=== PATIENT | male | born 1930 | race Caucasian/White ===

== ENCOUNTER → 2016-07-22 | Outpatient (CLI) | payer MEDICARE, OTHER ==
[~2016-07-22] MED LIST: AMLO10 PO; COLA100C PO; COZA100T PO; FOLI800T PO; FOLI800T12 PO; FURO20TA PO; LOSA100T PO; MAGN250T13 PO; META48.53 PO; METO50TA PO; OCUVTAB PO; TIMO0.5S29 EACH EYE; TIMO0.5S30 EACH EYE; TRIA0.1L TOPICAL; TRIAPOW6 TOP; VITA10002 PO; VITA100021 SL; VITA250C3 CHEW; VITA500T10 PO
[2016-07-22 13:14] LABS: AUTOMATED NEUTROPHIL # 9.7 TH/MM3 (1.8-7.7); BASOPHIL # 0.1 TH/MM3 (0-0.2); EOSINOPHIL # 0.2 TH/MM3 (0-0.4); EOSINOPHIL % 1.5 % (0.0-4.0); LYMPH % 8.8 % (9.0-44.0); LYMPHOCYTE # 1.1 TH/MM3 (1.0-4.8); MEAN CELL VOLUME 103.2 FL (80.0-100.0); MEAN CORPUSCULAR HEMOGLOBIN 34.6 PG (27.0-34.0); MEAN CORPUSCULAR HGB CONC 33.5 % (32.0-36.0); MONO % 7.5 % (0.0-8.0); NEUT % 81.2 % (16.0-70.0); PLATELET COUNT 306 TH/MM3 (150-450); RED BLOOD COUNT 3.39 MIL/MM3 (4.50-5.90); RED CELL DISTRIBUTION WIDTH 18.5 % (11.6-17.2); WHITE BLOOD COUNT 11.9 TH/MM3 (4.0-11.0)
[2016-07-22 13:18] LABS: HEMO FLAGS AUTO DIFF
[2016-07-22 13:52] LABS: BANDS 17 % (0-6); CORRECTED NUCLEATED RBC 1 /100 WBC (0-0); EOSINOPHILS 1 % (0-4); MYELOCYTES 2 % (0-0); NEUTROPHIL # MANUAL DIFF 10.2 TH/MM3 (1.8-7.7); POLYS (SEG NEUTROPHILS) 67 % (16-70); WBC DIFF SAMPLE 100
[2016-07-22 13:53] LABS: ACANTHOCYTES 1+ (NORMAL); OVALOCYTES 1+ (NORMAL); PLATELET ESTIMATE SMEAR NORMAL (NORMAL); PLATELET MORPHOLOGY NORMAL (NORMAL); SCAN/DIFF FINAL DIFF MANUAL
[2016-07-22 15:23] LABS: ALT (GPT) 26 U/L (12-78); ANION GAP 7 MEQ/L (5-15); AST (GOT) 22 U/L (15-37); BLOOD UREA NITROGEN 15 MG/DL (7-18); CHLORIDE 105 MEQ/L (98-107); GLOMERULAR FILTRATION RATE 59 ML/MIN (>89); GLUCOSE,FASTING 152 MG/DL (74-99); POTASSIUM 4.4 MEQ/L (3.5-5.1); SODIUM (NA) 140 MEQ/L (136-145)
[2016-07-22 15:33] LABS: ALKALINE PHOSPHATASE 94 U/L (45-117); HDL CHOLESTEROL 50.2 MG/DL (40.0-60.0); LDL CHOLESTEROL 94 MG/DL (0-99); TOTAL BILIRUBIN ADULT 0.4 MG/DL (0.2-1.0)
[2016-07-22 17:39] LABS: HEMOGLOBIN A1a 1.4 %; HEMOGLOBIN A1b 0.9 %; HEMOGLOBIN Ao 81.5 %; HEMOGLOBIN F 1.1 %; HEMOGLOBIN LA1C 2.7 %; HEMOGLOBIN P3 4.6 %
== END ==
LOC: PLAB 09:28
PROVIDERS: ATTEND Family Medicine
DX: Z00.00 Encounter for general adult medical examination without abnormal findings (principal); I48.91 Unspecified atrial fibrillation; I25.10 Atherosclerotic heart disease of native coronary artery without angina pectoris; E11.9 Type 2 diabetes mellitus without complications; Z87.891 Personal history of nicotine dependence; Z86.73 Personal history of transient ischemic attack (TIA), and cerebral infarction without residual deficits; I10 Essential (primary) hypertension; R09.89 Other specified symptoms and signs involving the circulatory and respiratory systems; R60.0 Localized edema; R06.02 Shortness of breath; R01.1 Cardiac murmur, unspecified
CPT/HCPCS: 36415; 80053; 80061; 83036; 84443; 85007; 85027

== ENCOUNTER → 2016-08-12 | Outpatient (CLI) | payer MEDICARE, OTHER ==
[2016-08-12 13:13] LABS: BASOPHIL # 0.1 TH/MM3 (0-0.2); BASOPHIL % 1.3 % (0.0-2.0); EOSINOPHIL # 0.4 TH/MM3 (0-0.4); EOSINOPHIL % 3.6 % (0.0-4.0); HEMATOCRIT 37.7 % (39.0-51.0); LYMPH % 16.9 % (9.0-44.0); LYMPHOCYTE # 1.7 TH/MM3 (1.0-4.8); MEAN CELL VOLUME 102.9 FL (80.0-100.0); MEAN CORPUSCULAR HEMOGLOBIN 35.8 PG (27.0-34.0); MEAN CORPUSCULAR HGB CONC 34.7 % (32.0-36.0); MONO % 6.8 % (0.0-8.0); NEUT % 71.4 % (16.0-70.0); PLATELET COUNT 197 TH/MM3 (150-450); RED BLOOD COUNT 3.66 MIL/MM3 (4.50-5.90); RED CELL DISTRIBUTION WIDTH 19.1 % (11.6-17.2); WHITE BLOOD COUNT 9.8 TH/MM3 (4.0-11.0)
[2016-08-12 13:14] LABS: HEMO FLAGS AUTO DIFF
[2016-08-12 14:05] LABS: BANDS 1 % (0-6); BASOPHILS 1 % (0-2); CORRECTED NUCLEATED RBC 2 /100 WBC (0-0); EOSINOPHILS 3 % (0-4); MYELOCYTES 1 % (0-0); NEUTROPHIL # MANUAL DIFF 7.1 TH/MM3 (1.8-7.7); PLATELET ESTIMATE SMEAR NORMAL (NORMAL); PLATELET MORPHOLOGY NORMAL (NORMAL); POLYS (SEG NEUTROPHILS) 70 % (16-70); SCAN/DIFF FINAL DIFF MANUAL; WBC DIFF SAMPLE 100
[2016-08-12 14:07] LABS: KERATOCYTES OCC (NORMAL); OVALOCYTES 1+ (NORMAL)
== END ==
LOC: PLAB 09:53
PROVIDERS: ATTEND Family Medicine
DX: R06.02 Shortness of breath (principal)
CPT/HCPCS: 36415; 85007; 85027

== ENCOUNTER → 2016-10-12 | Outpatient (CLI) | payer MEDICARE, OTHER ==
[2016-10-12 10:54] LABS: AUTOMATED NEUTROPHIL # 8.7 TH/MM3 (1.8-7.7); BASOPHIL % 0.4 % (0.0-2.0); EOSINOPHIL # 0.1 TH/MM3 (0-0.4); EOSINOPHIL % 1.2 % (0.0-4.0); HEMATOCRIT 39.7 % (39.0-51.0); LYMPH % 12.3 % (9.0-44.0); LYMPHOCYTE # 1.3 TH/MM3 (1.0-4.8); MEAN CELL VOLUME 103.1 FL (80.0-100.0); MEAN CORPUSCULAR HEMOGLOBIN 35.1 PG (27.0-34.0); MONO % 5.1 % (0.0-8.0); PLATELET COUNT 260 TH/MM3 (150-450); RED BLOOD COUNT 3.85 MIL/MM3 (4.50-5.90); RED CELL DISTRIBUTION WIDTH 19.4 % (11.6-17.2); WHITE BLOOD COUNT 10.8 TH/MM3 (4.0-11.0)
[2016-10-12 11:03] LABS: HEMO FLAGS AUTO DIFF
[2016-10-12 11:24] LABS: ALKALINE PHOSPHATASE 79 U/L (45-117); ALT (GPT) 23 U/L (12-78); ANION GAP 10 MEQ/L (5-15); AST (GOT) 22 U/L (15-37); BICARBONATE 25.7 MEQ/L (21.0-32.0); BLOOD UREA NITROGEN 22 MG/DL (7-18); CHLORIDE 105 MEQ/L (98-107); GLOMERULAR FILTRATION RATE 64 ML/MIN (>89); GLUCOSE,FASTING 159 MG/DL (74-99); HDL CHOLESTEROL 58.1 MG/DL (40.0-60.0); LDL CHOLESTEROL 93 MG/DL (0-99); POTASSIUM 4.1 MEQ/L (3.5-5.1); SODIUM (NA) 141 MEQ/L (136-145); TOTAL BILIRUBIN ADULT 0.6 MG/DL (0.2-1.0)
[2016-10-12 11:51] LABS: BANDS 4 % (0-6); MYELOCYTES 3 % (0-0); NEUTROPHIL # MANUAL DIFF 9.1 TH/MM3 (1.8-7.7); POLYS (SEG NEUTROPHILS) 77 % (16-70); WBC DIFF SAMPLE 100
[2016-10-12 11:54] LABS: OVALOCYTES 1+ (NORMAL); PLATELET ESTIMATE SMEAR NORMAL (NORMAL); PLATELET MORPHOLOGY NORMAL (NORMAL); SCAN/DIFF FINAL DIFF MANUAL
== END ==
LOC: PLAB 08:18
PROVIDERS: ATTEND Family Medicine
DX: I10 Essential (primary) hypertension (principal); E78.5 Hyperlipidemia, unspecified
CPT/HCPCS: 36415; 80053; 80061; 85007; 85027

== ENCOUNTER → 2016-12-03 | Outpatient (CLI) | payer MEDICARE, OTHER ==
[2016-12-03 13:03] LABS: AUTOMATED NEUTROPHIL # 7.5 TH/MM3 (1.8-7.7); BASOPHIL # 0.1 TH/MM3 (0-0.2); BASOPHIL % 1.2 % (0.0-2.0); EOSINOPHIL # 0.3 TH/MM3 (0-0.4); EOSINOPHIL % 2.6 % (0.0-4.0); HEMATOCRIT 36.6 % (39.0-51.0); LYMPH % 13.6 % (9.0-44.0); LYMPHOCYTE # 1.4 TH/MM3 (1.0-4.8); MEAN CELL VOLUME 101.8 FL (80.0-100.0); MEAN CORPUSCULAR HEMOGLOBIN 34.9 PG (27.0-34.0); MEAN CORPUSCULAR HGB CONC 34.3 % (32.0-36.0); MONO % 7.5 % (0.0-8.0); NEUT % 75.1 % (16.0-70.0); PLATELET COUNT 211 TH/MM3 (150-450); RED CELL DISTRIBUTION WIDTH 20.2 % (11.6-17.2); WHITE BLOOD COUNT 9.9 TH/MM3 (4.0-11.0)
[2016-12-03 13:24] LABS: HEMO FLAGS AUTO DIFF
[2016-12-03 13:31] LABS: ANION GAP 8 MEQ/L (5-15); BICARBONATE 27.5 MEQ/L (21.0-32.0); BLOOD UREA NITROGEN 16 MG/DL (7-18); CHLORIDE 105 MEQ/L (98-107); GLOMERULAR FILTRATION RATE 69 ML/MIN (>89); GLUCOSE,FASTING 144 MG/DL (74-99); POTASSIUM 4.2 MEQ/L (3.5-5.1); SODIUM (NA) 140 MEQ/L (136-145)
[2016-12-03 14:42] LABS: HEMOGLOBIN A1a 1.4 %; HEMOGLOBIN A1b 0.8 %; HEMOGLOBIN Ao 82.2 %; HEMOGLOBIN F 1.3 %; HEMOGLOBIN LA1C 2.5 %; HEMOGLOBIN P3 5.7 %
[2016-12-03 14:44] LABS: BANDS 3 % (0-6); EOSINOPHILS 1 % (0-4)
[2016-12-03 14:45] LABS: MYELOCYTES 2 % (0-0); NEUTROPHIL # MANUAL DIFF 7.9 TH/MM3 (1.8-7.7); OVALOCYTES 1+ (NORMAL); PLATELET ESTIMATE SMEAR NORMAL (NORMAL); PLATELET MORPHOLOGY ENLARGED (NORMAL); POLYS (SEG NEUTROPHILS) 75 % (16-70); WBC DIFF SAMPLE 100
[2016-12-03 14:47] LABS: ACANTHOCYTES OCC (NORMAL); SCAN/DIFF FINAL DIFF MANUAL; TEARDROP RBCS 1+ (NORMAL)
== END ==
LOC: PLAB 08:32
PROVIDERS: ATTEND Family Medicine
DX: I10 Essential (primary) hypertension (principal); E11.9 Type 2 diabetes mellitus without complications; R89.9 Unspecified abnormal finding in specimens from other organs, systems and tissues
CPT/HCPCS: 36415; 80048; 83036; 85007; 85027

== ENCOUNTER 2016-12-17 08:28 | Inpatient (IN) | payer MEDICARE, OTHER ==
[2016-12-17] VITALS (9 sets, daily range): BP systolic 154–184; BP diastolic 70–84; PULSE 70–74; RESP 17–20; TEMP 96.3–99.3; O2SAT 97–98
[~2016-12-17 08:28] MED LIST changes: -FOLI800T PO; -FURO20TA PO; -LOSA100T PO; -METO50TA PO; -TIMO0.5S30 EACH EYE; -TRIA0.1L TOPICAL; -VITA100021 SL; -VITA250C3 CHEW
--- NOTE | 2016-12-17 08:37 | PD ---
HPI Chief Complaint: Neuro Symptoms/ Deficits Time Seen by Provider: 08:31 Travel History International Travel<30 days: No Contact w/Intl Traveler<30days: No (uto) Traveled to known affect area: No History of Present Illness HPI unknown onset time, last saw him normal last night, this am she found him slumped over in bathroom and leaning to right side and had left sided gaze with right sided weakness upper more than lower.... gives h/o previous bleeding stroke in 2011 PFSH Past Medical History Hx Anticoagulant Therapy: No (von willebraun) Atrial Fibrillation: Yes (AV VALVE INSUFFICIENCY) Autoimmune Disease: No Blood Disorders: Yes (Von Willebrand Disease) Heart Rhythm Problems: Yes (A. FIB) Cancer: Yes (SKIN CANCER THAT WAS REMOVED ) Cardiovascular Problems: Yes High Cholesterol: No Chemotherapy: No Chest Pain: No Congestive Heart Failure: Yes Cerebrovascular Accident: No (neuro) Diabetes: No Diminished Hearing: No Endocrine: No Genitourinary: No Hepatitis: No Hiatal Hernia: No Hypertension: Yes Immune Disorder: No Musculoskeletal: Yes (osteoarthritis) Neurologic: Yes (bleeding on the brain 2013) Psychiatric: No Reproductive: No Respiratory: No Migraines: No Radiation Therapy: No Seizures: No Thyroid Disease: No Past Surgical History Abdominal Surgery: Yes (LOWER R ABD HERNIA REPAIR 1950) AICD: No Body Medical Devices: Pace maker Cardiac Surgery: No Ear Surgery: No Endocrine Surgery: No Eye Surgery: Yes (SHERRI CATARACT SURGERY) Genitourinary Surgery: No Gynecologic Surgery: No Joint Replacement: No Neurologic Surgery: Yes (SHERRI CARPAL TUNNEL SURGERY 2011) Oral Surgery: Yes (TEETH EXTRACTION, DENTAL IMPLANTS, BENIGN NODULE ON VOCAL CHORD REMOVED) Pacemaker: Yes Thoracic Surgery: No Tonsillectomy: Yes Other Surgery: Yes (SKIN CA REMOVAL AND VOCAL CORD NODULE REMOVED) Social History Alcohol Use: Yes (3 DRINKS DAILY) Tobacco Use: No Substance Use: No Allergies-Medications (Allergen,Severity, Reaction): Coded Allergies: HMG-CoA Reductase Inhibitors (Verified Allergy, Severe, 12/17/16) Penicillin (Verified Allergy, Severe, UNKNOWN, 12/17/16) Reported Meds & Prescriptions Reported Meds & Active Scripts Active Reported Triamcinolone Topical (Triamcinolone Acetonide) 0.1% Lotn 1 Applic TOPICAL TID Vitamin B-12 (Cyanocobalamin) 1,000 Mcg Subl 1,000 Mcg SL DAILY Metamucil Original Texture (Psyllium Hydrophilic Mucilloid) 48.57 % Pow 1 Scoop PO TID PRN 1 rounded TEASPOON in 8 oz of liquid at the first sign of irregularity. Timolol Opth Drops 0.5 % Soln 1 Drop EACH EYE BID Folic Acid 800 Mcg Tab 800 Mcg PO DAILY Ocuvite (Multiple Vitamins W/ Minerals) 1 Tab 1 Tab PO DAILY Vitamin C (Ascorbic Acid) 250 Mg Chew 500 Mg CHEW DAILY Metoprolol Tartrate 50 Mg Tab 50 Mg PO BID Furosemide 20 Mg Tab 20 Mg PO DAILY Losartan (Losartan Potassium) 100 Mg Tab 100 Mg PO DAILY Review of Systems ROS Limitations: Altered Mental Status, Speech Impaired Except as stated in HPI: all other systems reviewed are Neg Neurologic: Positive: Focal Abnormalities Physical Exam Narrative GENERAL: SKIN: Warm and dry. HEAD: Atraumatic. Normocephalic. EYES: Pupils equal and round. No scleral icterus. No injection or drainage. ENT: No nasal bleeding or discharge. Mucous membranes pink and moist. NECK: Trachea midline. No JVD. CARDIOVASCULAR: Regular rate and rhythm. RESPIRATORY: No accessory muscle use. Clear to auscultation. Breath sounds equal bilaterally. GASTROINTESTINAL: Abdomen soft, non-tender, nondistended. Hepatic and splenic margins not palpable. MUSCULOSKELETAL: Extremities without clubbing, cyanosis, or edema. No obvious deformities. NEUROLOGICAL: Awake, left sided gaze, right sided paresis ue(0/5)>le(2/5 strenghth), guarding airway, tolerating oral secretions, nihs total 19 PSYCHIATRIC: unable to test Data Data Last Documented VS Vital Signs Date Time Temp Pulse Resp B/P Pulse Ox O2 Delivery O2 Flow Rate FiO2 12/17/16 10:17 74 20 184/70 97 Room Air 12/17/16 08:52 98.0 Orders Electrocardiogram (12/17/16 08:31) Prothrombin Time / Inr (Pt) (12/17/16 08:31) Act Partial Throm Time (Ptt) (12/17/16 08:31) Complete Blood Count With Diff (12/17/16 08:31) Comprehensive Metabolic Panel (12/17/16 08:31) Troponin I (12/17/16 08:31) Ct Brain W/O Iv Contrast(Rout) (12/17/16 08:31) Ecg Monitoring (12/17/16 08:31) Iv Access Insert/Monitor (12/17/16 08:31) Oximetry (12/17/16 08:31) Blood Glucose (12/17/16 08:31) Sodium Chloride 0.9% Flush (Ns Flush) (12/17/16 08:45) Chest, Single Ap (12/17/16 08:31) Urinary Catheter Insert/Apply (12/17/16 09:54) Urinalysis - C+S If Indicated (12/17/16 09:54) Admit Order (Ed Use Only) (12/17/16 11:32) Labs Laboratory Tests Test 12/17/16 12/17/16 08:35 10:05 White Blood Count 16.7 TH/MM3 Red Blood Count 3.69 MIL/MM3 Hemoglobin 12.6 GM/DL Hematocrit 38.5 % Mean Corpuscular Volume 104.3 FL Mean Corpuscular Hemoglobin 34.1 PG Mean Corpuscular Hemoglobin 32.7 % Concent Red Cell Distribution Width 19.5 % Platelet Count 189 TH/MM3 Mean Platelet Volume 8.7 FL Neutrophils (%) (Auto) 88.5 % Lymphocytes (%) (Auto) 4.9 % Monocytes (%) (Auto) 5.1 % Eosinophils (%) (Auto) 0.8 % Basophils (%) (Auto) 0.7 % Neutrophils # (Auto) 14.8 TH/MM3 Lymphocytes # (Auto) 0.8 TH/MM3 Monocytes # (Auto) 0.9 TH/MM3 Eosinophils # (Auto) 0.1 TH/MM3 Basophils # (Auto) 0.1 TH/MM3 CBC Comment AUTO DIFF Differential Total Cells 100 Counted Neutrophils % (Manual) 85 % Band Neutrophils % 6 % Lymphocytes % 3 % Monocytes % 4 % Basophils % 1 % Neutrophils # (Manual) 15.4 TH/MM3 Metamyelocytes 1 % Nucleated Red Blood Cells 1 /100 WBC Differential Comment FINAL DIFF MANUAL Platelet Estimate NORMAL Platelet Morphology Comment NORMAL Ovalocytes 1+ Prothrombin Time 11.0 SEC Prothromb Time International 1.0 RATIO Ratio Activated Partial 25.4 SEC Thromboplast Time Sodium Level 138 MEQ/L Potassium Level 4.0 MEQ/L Chloride Level 103 MEQ/L Carbon Dioxide Level 25.8 MEQ/L Anion Gap 9 MEQ/L Blood Urea Nitrogen 17 MG/DL Creatinine 1.22 MG/DL Estimat Glomerular Filtration 56 ML/MIN Rate Random Glucose 192 MG/DL Calcium Level 8.8 MG/DL Total Bilirubin 0.9 MG/DL Aspartate Amino Transf 26 U/L (AST/SGOT) Alanine Aminotransferase 26 U/L (ALT/SGPT) Alkaline Phosphatase 91 U/L Troponin I LESS THAN 0.02 NG/ML Total Protein 6.8 GM/DL Albumin 3.6 GM/DL Urine Color YELLOW Urine Turbidity CLEAR Urine pH 6.5 Urine Specific [place] 1.018 Urine Protein TRACE mg/dL Urine Glucose (UA) NEG mg/dL Urine Ketones NEG mg/dL Urine Occult Blood NEG Urine Nitrite NEG Urine Bilirubin NEG Urine Urobilinogen LESS THAN 2.0 MG/DL Urine Leukocyte Esterase TRACE Urine RBC 1 /hpf Urine WBC 3 /hpf Urine Bacteria RARE /hpf Urine Hyaline Casts 1 /lpf Microscopic Urinalysis Comment CULT NOT INDICATED MDM Medical Decision Making Medical Screen Exam Complete: Yes Emergency Medical Condition: Yes Medical Record Reviewed: Yes Interpretation(s) paced rhtyhm at 70, no concordance Differential Diagnosis hemorrhagic vs ischemic stroke, Narrative Course ISCHEMIC CVA OUTSIDE OF TPA WINDOW. NEURO DR CEE AGREES AND WILL GIVE RECC DUE TO HYPERCOAGULABLE NATURE OF VWF DZ Diagnosis Primary Impression: CVA (cerebral vascular accident) Qualified Code: I63.9 - Cerebrovascular accident (CVA), unspecified mechanism Admitting Information Admitting Physician Requests: Admit Jermain Triana MD Dec 17, 2016 08:37
[2016-12-17] MEDS ORDERED: SODIUM CHLORIDE 0.9% FLUSH 10 ML FLUSH IVF PRN (08:45)
[2016-12-17 09:04] LABS: AUTOMATED NEUTROPHIL # 14.8 TH/MM3 (1.8-7.7); BASOPHIL # 0.1 TH/MM3 (0-0.2); BASOPHIL % 0.7 % (0.0-2.0); EOSINOPHIL # 0.1 TH/MM3 (0-0.4); EOSINOPHIL % 0.8 % (0.0-4.0); HEMATOCRIT 38.5 % (39.0-51.0); LYMPH % 4.9 % (9.0-44.0); LYMPHOCYTE # 0.8 TH/MM3 (1.0-4.8); MEAN CELL VOLUME 104.3 FL (80.0-100.0); MEAN CORPUSCULAR HEMOGLOBIN 34.1 PG (27.0-34.0); MEAN CORPUSCULAR HGB CONC 32.7 % (32.0-36.0); MONO % 5.1 % (0.0-8.0); NEUT % 88.5 % (16.0-70.0); PLATELET COUNT 189 TH/MM3 (150-450); RED BLOOD COUNT 3.69 MIL/MM3 (4.50-5.90); RED CELL DISTRIBUTION WIDTH 19.5 % (11.6-17.2); WHITE BLOOD COUNT 16.7 TH/MM3 (4.0-11.0)
[2016-12-17 09:07] LABS: HEMO FLAGS AUTO DIFF
--- NOTE | 2016-12-17 09:12 | RADRPT ---
EXAM DATE/TIME: 12/17/2016 08:38 [facility] COMPARISON: CT BRAIN W/O CONTRAST, April 26, 2012, 11:14. INDICATIONS : Left side gaze, Right side weakness. RADIATION DOSE: 47.28 CTDIvol (mGy) MEDICAL HISTORY : Non-responsive. SURGICAL HISTORY : Non-responsive. ENCOUNTER: Initial ACUITY: 1 day PAIN SCALE: Non-responsive LOCATION: TECHNIQUE: Multiple contiguous axial images were obtained of the head. Using automated exposure control and adj ustment of the mA and/or kV according to patient size, radiation dose was kept as low as reasonably a chievable to obtain optimal diagnostic quality images. 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 There is associated expected enlargement of the occipital horn of the right lateral ventricle. The ventricles, sulci, and basal cisterns are pro minent characteristic a central and cortical atrophy. There is good reilly-white matter differentiatio n in the remainder of the supratentorial brain. No evidence of acute blood products or extra-axial f luid. POSTERIOR FOSSA: The cerebellum and brainstem are intact. The 4th ventricle is midline. The cerebellopontine angle i s unremarkable. EXTRACRANIAL: The visualized portion of the orbits is intact. SKULL: The calvaria is intact. No evidence of skull fracture. CONCLUSION: No acute findings. Moderate central and cortical atrophy. Encephalomalacia right posterior temporal parietal region. Howie Freire MD on December 17, 2016 at 9:07 Board Certified Radiologist. This report was verified electronically.
[2016-12-17 09:17] LABS: ANION GAP 9 MEQ/L (5-15); AST (GOT) 26 U/L (15-37); BICARBONATE 25.8 MEQ/L (21.0-32.0); BLOOD UREA NITROGEN 17 MG/DL (7-18); CHLORIDE 103 MEQ/L (98-107); GLOMERULAR FILTRATION RATE 56 ML/MIN (>89); SODIUM (NA) 138 MEQ/L (136-145)
[2016-12-17 09:18] LABS: ALT (GPT) 26 U/L (12-78)
[2016-12-17] MEDS ORDERED: FOLI800T PO (09:18)
[2016-12-17] MEDS ORDERED: VITA250C3 CHEW (09:18)
[2016-12-17] MEDS ORDERED: VITA100021 SL (09:18)
[2016-12-17] MEDS ORDERED: FURO20TA PO (09:18)
[2016-12-17] MEDS ORDERED: TIMO0.5S30 EACH EYE (09:18)
[2016-12-17] MEDS ORDERED: META48.53 PO (09:18)
[2016-12-17] MEDS ORDERED: OCUVTAB PO (09:18)
[2016-12-17] MEDS ORDERED: LOSA100T PO (09:18)
[2016-12-17] MEDS ORDERED: METO50TA PO (09:18)
[2016-12-17] MEDS ORDERED: TRIA0.1L TOPICAL (09:18)
[2016-12-17 09:22] LABS: ALKALINE PHOSPHATASE 91 U/L (45-117); TOTAL BILIRUBIN ADULT 0.9 MG/DL (0.2-1.0)
[2016-12-17 09:27] LABS: APTT (PATIENT) 25.4 SEC (24.3-30.1)
--- NOTE | 2016-12-17 09:28 | RADRPT ---
EXAM DATE/TIME: 12/17/2016 08:44 [facility] COMPARISON: CHEST SINGLE AP, October 02, 2015, 1:17. INDICATIONS : Shortness of breath. MEDICAL HISTORY : None. SURGICAL HISTORY : region of the aortic valve. The cardiomediastinal contours are unremarkable. Osseous structures are intact. CONCLUSION: No acute disease. Howie Antonio Jr., MD on December 17, 2016 at 9:24 Board Certified Radiologist. This report was verified electronically.
[2016-12-17 10:01] LABS: BANDS 6 % (0-6); BASOPHILS 1 % (0-2); CORRECTED NUCLEATED RBC 1 /100 WBC (0-0); METAMYELOCYTES 1 % (0-1); NEUTROPHIL # MANUAL DIFF 15.4 TH/MM3 (1.8-7.7); POLYS (SEG NEUTROPHILS) 85 % (16-70); WBC DIFF SAMPLE 100
[2016-12-17 10:02] LABS: OVALOCYTES 1+ (NORMAL); PLATELET ESTIMATE SMEAR NORMAL (NORMAL); PLATELET MORPHOLOGY NORMAL (NORMAL); SCAN/DIFF FINAL DIFF MANUAL
[2016-12-17 10:34] LABS: BACTERIA, URINE RARE /hpf; BLOOD, URINE NEG (NEG); COMMENT (UR) CULT NOT INDICATED; CULTURE IF INDICATED CULT NOT INDICATED; GLUCOSE,URINE NEG (NEG); HYALINE CAST, URINE 1 /lpf (RARE); KETONE, URINE NEG (NEG); NITRITE,URINE NEG (NEG); PH, URINE 6.5 (5.0-8.5); URINE COLOR YELLOW (YELLW/STRAW)
--- NOTE | 2016-12-17 11:56 | MB ---
cc: CRISTIANE CEE M.D. DATE OF CONSULTATION: 12/17/2016 HISTORY OF PRESENT ILLNESS The patient is an 86-year-old seen in the emergency room. I spoke to the ED physician a few minutes before I came down and met him in the emergency room. The is at bedside and she also provides a history. The patient has a past history of atrial fibrillation and apparently had intracranial bleed in 2012 when he was on Coumadin. Also history of von Willebrand disease and apparently cannot take any blood thinners. He has hypertensive disease and takes amlodipine. He is on vitamins. He follows with a acting instructor, Dr. Zendejas. The patient recovered well from the bleed a few years ago and he was at his baseline yesterday. In the afternoon he apparently had something minor as he may have lost his balance and he had no consequences from this. Later in the evening he seemed to be fine and went to bed around 10:00 p.m. This morning the woke up and noticed that the patient had a neurological deficit. He was brought to the emergency room. He has not changed very much. NEUROLOGICAL EXAMINATION He is awake, restless, mumbling. At times he will follow simple commands. He did close the eyes on request. He is moving the left-sided limbs well. Occasionally he moves the right leg. There is some tone in the right leg. The right arm is flaccid. He is gazing preferentially to the left and he is neglecting when I am on his right side and keeps looking towards the left for the verbal stimulation. He has extensive bruising involving the right arm predominantly but there is bruising on other areas of the body. The pupils were about the same size and reactive. IMAGING A CT brain was negative for an acute neurologic event. ASSESSMENT 1. 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 2. Prior history of atrial fibrillation and intracranial bleed, apparently when he was on Coumadin. 3. von Willebrand disease. PLAN/RECOMMENDATIONS This was a wake-up stroke. Evidently not a candidate for any TPA or any acute anticoagulation. There is extensive bruising, especially in the right upper extremity where he is flaccid and 0/5. He might not even be a candidate for antiplatelet therapy because of the hematologic disorder. He has a pacemaker. Will monitor the neurological course. IV fluids and supportive care. SCDs as I discussed with the emergency room physician. Will work him up also with a carotid ultrasound. Follow-up CT brain in a day or so. He is significantly aphasic and he may have sustained a large stroke. I will follow the neurological course. Diagnosis and prognosis discussed with the patient's . His daughter was also at bedside. Thank you for asking us to assist in his care. Cristiane Cee MD OFC/BT /11:28 AM /11:38 AM
--- NOTE | 2016-12-17 12:37 | HHI.HP ---
[facility] No Primary Care Physician Admission Diagnosis ACUTE ISCHEMIC CVA Diagnoses: Chief Complaint: Syncope Travel History International Travel<30 Days: No Contact w/Intl Traveler <30 Da: No (uto) Traveled to Known Affected Are: No History of Present Illness This is a 86-year-old male past medical history Von Willebrand Disease, aortic stenosis s/p TAVR in 2013 history of hemorrhagic stroke secondary to Coumadin who presented with syncope and strokelike symptoms. History obtained from patient's since patient has aphasia. Per yesterday patient did have an episode where he was not able to get up but that resolved quickly. Before going to bed last night she stated that he was perspiring a little more and stated that he felt funny but she that was okay so they went to bed. This morning at 7:30 AM his found him sitting on the toilet slumped onto the wall. She stated that she called EMS and during that time he was responsive but when he left he was nonresponsive. In the emergency department patient does follow commands but has aphasia. He has no strength on his right side. Review of Systems Cardiovascular: COMPLAINS OF: Syncope Unable to obtain due to stroke. Past Family Social History Past Medical History Von Willebrand disease, history of aortic stenosis, history of intracranial bleed in 2011 due to Coumadin, hypertension Past Surgical History TAVR Pacemaker placement History of back surgery in 2016 Reported Medications Triamcinolone Topical (Triamcinolone Acetonide) 0.1% Lotn 1 Applic TOPICAL TID Vitamin B-12 (Cyanocobalamin) 1,000 Mcg Subl 1,000 Mcg SL DAILY Metamucil Original Texture (Psyllium Hydrophilic Mucilloid) 48.57 % Pow 1 Scoop PO TID PRN 1 rounded TEASPOON in 8 oz of liquid at the first sign of irregularity. Timolol Opth Drops 0.5 % Soln 1 Drop EACH EYE BID Folic Acid 800 Mcg Tab 800 Mcg PO DAILY Ocuvite (Multiple Vitamins W/ Minerals) 1 Tab 1 Tab PO DAILY Vitamin C (Ascorbic Acid) 250 Mg Chew 500 Mg CHEW DAILY Metoprolol Tartrate 50 Mg Tab 50 Mg PO BID Furosemide 20 Mg Tab 20 Mg PO DAILY Losartan (Losartan Potassium) 100 Mg Tab 100 Mg PO DAILY Allergies: Coded Allergies: HMG-CoA Reductase Inhibitors (Verified Allergy, Severe, 12/17/16) Penicillin (Verified Allergy, Severe, UNKNOWN, 12/17/16) Active Ordered Medications Current Medications Sodium Chloride (NS Flush) 2 ml UNSCH PRN IVF FLUSH AFTER USING IV ACCESS; Start 12/17/16 at 08:45; Stop 12/17/16 at 13:13; Status DC Sodium Chloride (NS Flush) 2 ml BID IV FLUSH ; Start 12/17/16 at 21:00 Sodium Chloride (NS Flush) 2 ml UNSCH PRN IV FLUSH FLUSH AFTER USING IV ACCESS ; Start 12/17/16 at 12:45 Insulin Aspart (NovoLOG SUPPLEMENTAL SCALE) 1 ACHS SQ ; Start 12/17/16 at 16:00 Dextrose (D50w (Vial) Inj) 50 ml UNSCH PRN IV PUSH HYPOGLYCEMIA-SEE COMMENTS; Start 12/17/16 at 12:45 Glucagon (Glucagon Inj) 1 mg UNSCH PRN OTHER HYPOGLYCEMIA-SEE COMMENTS; Start 12/17/16 at 12:45 Family History Father and mother had cardiovascular disease. Social History Patient lives with his . Stopped smoking at the age of 41. Drinks a shot of bourbon every night. Physical Exam Vital Signs Vital Signs Date Time Temp Pulse Resp B/P Pulse Ox O2 Delivery O2 Flow Rate FiO2 12/17/16 10:17 74 20 184/70 97 Room Air 12/17/16 08:52 98.0 70 18 154/72 97 Room Air 12/17/16 08:31 70 18 168/77 97 Physical Exam GENERAL: This is a well-nourished, well-developed patient, in no apparent distress. SKIN: Multiple bruises found on extremities. HEAD: Atraumatic. Normocephalic. No temporal or scalp tenderness. EYES: Pupils equal round and reactive. Extraocular motions intact. No scleral icterus. No injection or drainage. Patient tends to favor his left side. ENT: Nose without bleeding, purulent drainage or septal hematoma. Throat without erythema, tonsillar hypertrophy or exudate. Uvula midline. Airway patent. NECK: Trachea midline. No JVD or lymphadenopathy. Supple, nontender, no meningeal signs. CARDIOVASCULAR: Regular rate and rhythm, gallops, or rubs. 2/6 systolic heart murmur RESPIRATORY: Clear to auscultation. Breath sounds equal bilaterally. No wheezes , rales, or rhonchi. GASTROINTESTINAL: Abdomen soft, non-tender, nondistended. No hepato-splenomegaly , or palpable masses. No guarding. MUSCULOSKELETAL: 5 out of 5 upper and lower extremity left-sided strength. Right sided flaccid. NEUROLOGICAL: Patient seemed lethargic. He does follow basic commands. Has aphasia. Laboratory Laboratory Tests Test 12/17/16 12/17/16 08:35 10:05 White Blood Count 16.7 Red Blood Count 3.69 Hemoglobin 12.6 Hematocrit 38.5 Mean Corpuscular Volume 104.3 Mean Corpuscular Hemoglobin 34.1 Mean Corpuscular Hemoglobin 32.7 Concent Red Cell Distribution Width 19.5 Platelet Count 189 Mean Platelet Volume 8.7 Neutrophils (%) (Auto) 88.5 Lymphocytes (%) (Auto) 4.9 Monocytes (%) (Auto) 5.1 Eosinophils (%) (Auto) 0.8 Basophils (%) (Auto) 0.7 Neutrophils # (Auto) 14.8 Lymphocytes # (Auto) 0.8 Monocytes # (Auto) 0.9 Eosinophils # (Auto) 0.1 Basophils # (Auto) 0.1 CBC Comment AUTO DIFF Differential Total Cells 100 Counted Neutrophils % (Manual) 85 Band Neutrophils % 6 Lymphocytes % 3 Monocytes % 4 Basophils % 1 Neutrophils # (Manual) 15.4 Metamyelocytes 1 Nucleated Red Blood Cells 1 Differential Comment FINAL DIFF MANUAL Platelet Estimate NORMAL Platelet Morphology Comment NORMAL Ovalocytes 1+ Prothrombin Time 11.0 Prothromb Time International 1.0 Ratio Activated Partial 25.4 Thromboplast Time Sodium Level 138 Potassium Level 4.0 Chloride Level 103 Carbon Dioxide Level 25.8 Anion Gap 9 Blood Urea Nitrogen 17 Creatinine 1.22 Estimat Glomerular Filtration 56 Rate Random Glucose 192 Calcium Level 8.8 Total Bilirubin 0.9 Aspartate Amino Transf 26 (AST/SGOT) Alanine Aminotransferase 26 (ALT/SGPT) Alkaline Phosphatase 91 Troponin I LESS THAN 0.02 Total Protein 6.8 Albumin 3.6 Urine Color YELLOW Urine Turbidity CLEAR Urine pH 6.5 Urine Specific [place] 1.018 Urine Protein TRACE Urine Glucose (UA) NEG Urine Ketones NEG Urine Occult Blood NEG Urine Nitrite NEG Urine Bilirubin NEG Urine Urobilinogen LESS THAN 2.0 Urine Leukocyte Esterase TRACE Urine RBC 1 Urine WBC 3 Urine Bacteria RARE Urine Hyaline Casts 1 Microscopic Urinalysis Comment CULT NOT INDICATED Result Diagram: 12/17/1683412/17/16834 Imaging Last Impressions Head CT 12/17/16830 Signed Impressions: Service Date/Time: December 08:38 - CONCLUSION: No acute findings. Moderate central and cortical atrophy. Encephalomalacia right posterior temporal parietal region. Howie Freire MD Chest X-Ray 12/17/16830 Signed Impressions: Service Date/Time: December 08:44 - CONCLUSION: No acute disease. Howie Antonio Jr., MD Assessment and Plan Assessment and Plan 85-year-old male past medical history of von Willebrand's disease, history of intracranial hemorrhage secondary to Coumadin, and hypertension who presented with Dysphagia and right-sided weakness -Most likely secondary to CVA. -Difficulty doing a stroke workup since patient does have a pacemaker. Patient does have Von Willebrand's disease with extensive bruising on extremities and history of intracranial hemorrhage per neurologist which makes it contraindicated for any antiplatelet or anticoagulation therapy. -Unable to obtain MRI due to pacemaker will repeat CT scan of the head as directed by neurologist tomorrow. Will also order carotid ultrasound and echo. -Continue with stroke protocol. Consult PT/OT/ST. -Allow permissive hypertension. Will get a lipid panel and hemoglobin A1c. -Poor prognosis. History of hypertension -Will allow permissive hypertension. Von Willebrand's disease, aortic stenosis s/p TAVR -stable DVT prophylaxis -SCDs. Discussed Condition With patient, his and daughter Very poor prognosis. Physician Certification 2 Midnight Certification Type: Admission for Inpatient Services Order for Inpatient Services The services are ordered in accordance with Medicare regulations or non- Medicare payer requirements, as applicable. In the case of services not specified as inpatient-only, they are appropriately provided as inpatient services in accordance with the 2-midnight benchmark. Estimated LOS (days): 5 5 days is the estimated time the patient will need to remain in the hospital, assuming treatment plan goals are met and no additional complications. Post-Hospital Plan: [facility] Regla Garnett MD Dec 17, 2016 12:37
[2016-12-17] MEDS ORDERED: DEXTROSE 50% IN WATER 50 ML VIAL(D50) IV PUSH PRN (12:45)
[2016-12-17] MEDS ORDERED: SODIUM CHLORIDE 0.9% FLUSH 10 ML FLUSH IV FLUSH PRN (12:45)
[2016-12-17] MEDS ORDERED: GLUCAGON 1 MG/ML VIAL OTHER PRN (12:45)
--- NOTE | 2016-12-17 14:50 | EKG ---
Date Performed: 12/17/2016 Time Performed: 08:47:22 PTAGE: 86 years EKG: ELECTRONIC VENTRICULAR PACEMAKER ABNORMAL RHYTHM ECG Compared to PREVIOUS TRACING , ventricular pacing is new. PREVIOUS TRACIN05/09/2014 14.16 DOCTOR: Adam Chapman Interpretating Date/Time 12/17/2016 14:48:28
[2016-12-17] MEDS: INSULIN ASPART SUPPLEMENTAL SCALE SQ SCH ×2 (16:00→21:00)
[2016-12-17 16:16] LABS: HEMOGLOBIN A1a 1.4 %; HEMOGLOBIN A1b 0.8 %; HEMOGLOBIN Ao 82.2 %; HEMOGLOBIN F 1.3 %; HEMOGLOBIN LA1C 2.8 %; HEMOGLOBIN P3 4.2 %
--- NOTE | 2016-12-17 16:42 | ECHRPT ---
Indication: CVA/TIA CONCLUSIONS Normal left ventricular size. Mild concentric left ventricular hypertrophy. The left ventricular sys tolic function is normal with an estimated ejection fraction in the range of 55-60%. No regional wall chacha on abnormalities are present. Doppler parameters are consistent with impaired left ventricular relaxtio n (grade 1 diastolic dysfunction). A pacemaker wire is noted. The left atrial size is ygsx-tk-abibjcxgrk dilated. The right atrial size is gghi-ti-vzttkyjtlw dilated. Mitral annular calcification is present. Moderate mitral valve regurgitation. No mitral valve steno sis. Structurally normal tricuspid valve. There is moderate tricuspid regurgitation. The estimated pulmon everardo arterial pressure is 64 mmHg. There is estimated xlfejnvw-oa-uinpcz pulmonary hypertension present (range 60-70 mmHg). BP: 154 / 72 HR: 72 Rhythm: Other MEASUREMENTS (Male / Female) Normal Values Technical Quality:Fair 2D ECHO LV Diastolic Diameter PLAX 5.3 cm 4.2 - 5.9 / 3.9 - 5.3 cm LV Systolic Diameter PLAX 4.4 cm IVS Diastolic Thickness 1.2 cm 0.6 - 1.0 / 0.6 - 0.9 cm LVPW Diastolic Thickness 1.1 cm 0.6 - 1.0 / 0.6 - 0.9 cm LV Relative Wall Thickness 0.4 LVOT Diameter 2.0 cm M-MODE Aortic Root Diameter MM 2.6 cm LA Systolic Diameter MM 5.6 cm LA Ao Ratio MM 2.2 DOPPLER AV Peak Velocity 95.0 cm/s AV Peak Gradient 3.6 mmHg LVOT Peak Velocity 70.7 cm/s LVOT Peak Gradient 2.0 mmHg AV Area Cont Eq pk 2.3 cm MR Peak Velocity 596.0 cm/s MR Peak Gradient 142.1 mmHg LV E' Lateral Velocity 8.1 cm/s LV E' Septal Velocity 5.2 cm/s TR Peak Velocity 369.0 cm/s TR Peak Gradient 54.0 mmHg PV Peak Velocity 122.0 cm/s PV Peak Gradient 6.0 mmHg FINDINGS Left Ventricle Normal left ventricular size. Mild concentric left ventricular hypertrophy. The left ventricular sys tolic function is normal with an estimated ejection fraction in the range of 55-60%. No regional wall chacha on abnormalities are present. Doppler parameters are consistent with impaired left ventricular relaxtio n (grade 1 diastolic dysfunction). Right Ventricle A pacemaker wire is noted. Left Atrium The left atrial size is yhrw-ta-hwdczmvjfx dilated. Right Atrium The right atrial size is huto-qz-tysfxzbnxe dilated. Atrial Septum Normal atrial septal thickness without atrial level shunting by limited color doppler interrogation. Aorta The aortic root and proximal ascending aorta are normal in size on limited imaging. Mitral Valve Mitral annular calcification is present. Moderate mitral valve regurgitation. Aortic Valve Trileaflet aortic valve. No aortic valve stenosis or regurgitation. Tricuspid Valve Structurally normal tricuspid valve. There is moderate tricuspid regurgitation. The estimated pulmon everardo arterial pressure is 64 mmHg. There is estimated sozoyxnx-qi-macgga pulmonary hypertension present (range 60-70 mmHg). Pulmonary Valve The pulmonary valve is not well visualized. Vessels The inferior vena cava is normal in size. Pericardium No pericardial effusion. Other Findings Possible aortic valve replacement... patient was not very verbal during exam. Randy Porter MD, FACC (Electronically Signed) Final Date:17 December 2016 16:42
--- NOTE | 2016-12-17 19:12 | RADRPT ---
EXAM DATE/TIME: 12/17/2016 17:02 [facility] COMPARISON: No previous studies available for comparison. INDICATIONS : Cerebrovascular accident. MEDICAL HISTORY : Stroke. Congestive heart failure. Hypertension. A-fib. Arthritis. MRSA. SURGICAL HISTORY : Pacemaker. Tonsillectomy. Aortic valve replacement. ENCOUNTER: Initial ACUITY: 1 day PAIN SCORE: 0/10 LOCATION: Bilateral neck PEAK SYSTOLIC VELOCITIES (cm/sec): ICA/CCA RATIO: Right: 2.2 Left: 1.2 ICA: Right: 142 Left: 67 CCA: Right: 64 Left: 55 ECA: Right: 144 Left: 124 VERTEBRAL: Right: 51 antegrade Left: 77 antegrade Elevated flow velocities and ICA/CCA ratios have been found to correlate with increased degrees of vessel stenosis, calculated as percentage of diameter relative to a normal segment of distal ICA/CCA FINDINGS: RIGHT CAROTID: Mild flow velocity acceleration associated with mild eccentric plaquing. LEFT CAROTID: Mild eccentric plaquing. No significant stenosis is visualized. The waveforms are within normal limi ts. VERTEBRAL ARTERIES: Antegrade flow is seen in both vertebral arteries. MISCELLANEOUS: None. CONCLUSION: Mild flow velocity acceleration across the right carotid bifurcation indicating at least moderate oliverio notic narrowing estimated at potentially 50% or greater Horace Allen MD on December 17, 2016 at 19:06 Board Certified Radiologist. This report was verified electronically.
[2016-12-17] MEDS: SODIUM CHLORIDE 0.9% FLUSH 10 ML FLUSH IV FLUSH SCH (21:00)
[2016-12-17] MEDS ORDERED: ENALAPRILAT 1.25 MG/ML VIAL IV PRN (21:45)
[2016-12-17] MEDS: TIMOLOL MALEATE 0.5% OPHT SOLN 5 ML BTL EACH EYE SCH (22:53)
[2016-12-18] VITALS (11 sets, daily range): BP systolic 151–226; BP diastolic 71–99; PULSE 68–78; RESP 20–33; TEMP 97.3–99.7; O2SAT 72–98
[2016-12-18] MEDS: INSULIN ASPART SUPPLEMENTAL SCALE SQ SCH (06:49)
[2016-12-18 08:42] LABS: HDL CHOLESTEROL 55.1 MG/DL (40.0-60.0)
[2016-12-18] MEDS ORDERED: MORPHINE SULFATE 4 MG/ML INJ IV PUSH PRN (08:45)
[2016-12-18] MEDS ORDERED: MORPHINE SULFATE 4 MG/ML INJ IM ONE (08:45)
--- NOTE | 2016-12-18 08:57 | HHI.PR ---
Addendum to Inpatient Note Addendum Reason: Additional Documentation Additional Information I was notified by nursing the patient went to acute respiratory failure with agonal breathing. His son was at the bedside and the staff had an extensive discussion with the patient's son and the patient's over the phone. The family decided to not escalate care and to transition to comfort care only making him a DNR. I arrived at the bedside, and intensive his Dr. Antonio was at the bedside as well. I confirmed with the patient's son that he is a DNR and they requested comfort measures only. On exam, BP 181/83, [id number]. the patient has agonal breathing. Diffuse rhonchi bilaterally. He is unresponsive. Does not withdraw to painful stimulus. Tachycardic. Extensive bruising bilateral upper extremities. A/P: A good neurologist assessment. Patient probably had a major stroke. He does have a coagulopathy, von Willebrand's disease. A hemorrhagic stroke is not excluded at this point. He is now in acute respiratory failure. His prognosis is extremely poor. Agree with family's decision for comfort care. - Stat hospice consult. Morphine and Ativan every 15 minutes as needed for pain and anxiety. Jaquelin Arriola MD Dec 18, 2016 08:57
[2016-12-18] MEDS ORDERED: TRIAMCINOLONE ACET 0.1% LOTION 60 ML BTL TOPICAL SCH (09:00)
[2016-12-18] MEDS: SODIUM CHLORIDE 0.9% FLUSH 10 ML FLUSH IV FLUSH SCH (09:00)
[2016-12-18] MEDS: MORPHINE SULFATE 4 MG/ML INJ IV SCH ×3 (09:05→16:53)
[2016-12-18] MEDS: LORazepam 2 MG/ML VIAL IV PUSH PRN ×2 (09:21→09:33)
[2016-12-18] MEDS: TIMOLOL MALEATE 0.5% OPHT SOLN 5 ML BTL EACH EYE SCH (09:24)
--- NOTE | 2016-12-18 09:28 | HHI.PR ---
Review/Management Daily Summary 12/18 acute respiratory distress, possible stroke extension family wants comfort care spoke to staff at bedside and critical care as well as dr Arriola arrived to assist in care hospice and comfort as per dr Arriola if he stabilizes medically then we will follow with ct brain Subjective Subjective Comments called with neuro change this am saw pt when respiratory was assisting him in acute distress fruit packer arrived as well Active Medications Current Medications Medications (Trade) Dose Ordered Sig/Nikky Route Start Time Stop Time Status Last Admin (NS Flush) 2 ml BID IV FLUSH 12/17/16 21:00 12/17/16 21:00 (NS Flush) 2 ml UNSCH PRN IV FLUSH 12/17/16 12:45 (NovoLOG SUPPLEMENTAL SCALE) 1 ACHS SQ 12/17/16 16:00 12/18/16 06:49 (D50w (Vial) Inj) 50 ml UNSCH PRN IV PUSH 12/17/16 12:45 (Glucagon Inj) 1 mg UNSCH PRN OTHER 12/17/16 12:45 (Timoptic 0.5% Opth Soln) 1 drop BID EACH EYE 12/17/16 21:45 12/17/16 22:53 (Kenalog 0.1% Lotion) 1 applic TID TOPICAL 12/18/16 09:00 (Vasotec Inj) 1.25 mg Q4H PRN IV 12/17/16 21:45 12/18/16 06:41 (Ativan Inj) 1 mg Q15M PRN IV PUSH 12/18/16 08:45 12/18/16 09:21 (Morphine Inj) 4 mg Q15M PRN IV PUSH 12/18/16 08:45 Allergies Allergies Coded Allergies HMG-CoA Reductase Inhibitors (Verified Allergy, Severe, 12/17/16) Penicillin (Verified Allergy, Severe, UNKNOWN, 12/17/16) Exam I&O / VS 12/17/16 12/17/16 12/18/16 15:00 23:00 07:00 Intake Total 120 ml Output Total 175 ml 500 ml Balance -175 ml -380 ml Intake Oral 120 ml Output Urine Total 175 ml 500 ml # Voids 0 Vital Signs Date Time Temp Pulse Resp B/P Pulse Ox O2 Delivery O2 Flow Rate FiO2 12/18/16 08:35 97.6 73 32 181/83 97 12/18/16 06:00 97.3 72 22 226/96 97 12/18/16 04:00 97.4 69 22 217/96 97 12/18/16 02:00 98.2 68 20 207/99 95 12/18/16 00:00 99.7 71 20 188/86 98 12/17/16 22:48 70 12/17/16 22:00 98.8 73 20 183/84 97 12/17/16 20:00 99.3 72 20 162/70 97 12/17/16 15:55 97.8 70 20 183/78 98 12/17/16 14:26 96.3 70 20 177/79 97 12/17/16 12:40 72 17 172/72 98 Room Air 12/17/16 10:17 74 20 184/70 97 Room Air Objective Radiology Results Last [address] 12/17/16 0831 Signed Impressions: Service Date/Time: December 08:38 - CONCLUSION: No acute findings. Moderate central and cortical atrophy. Encephalomalacia right posterior temporal parietal region. Howie Freire MD Chest X-Ray 12/17/16 0831 Signed Impressions: Service Date/Time: December 08:44 - CONCLUSION: No acute disease. Howie Antonio Jr., MD Carotid Artery Ultrasound 12/17/16 0000 Signed Impressions: Service Date/Time: December 17:02 - CONCLUSION: Mild flow velocity acceleration across the right carotid bifurcation indicating at least moderate stenotic narrowing estimated at potentially 50%% or greater Horace Allen MD Vital Signs Date Time Temp Pulse Resp B/P Pulse Ox O2 Delivery O2 Flow Rate FiO2 12/18/16 08:35 97.6 73 32 181/83 97 12/18/16 06:00 97.3 72 22 226/96 97 12/18/16 04:00 97.4 69 22 217/96 97 12/18/16 02:00 98.2 68 20 207/99 95 12/18/16 00:00 99.7 71 20 188/86 98 12/17/16 22:48 70 12/17/16 22:00 98.8 73 20 183/84 97 12/17/16 20:00 99.3 72 20 162/70 97 12/17/16 15:55 97.8 70 20 183/78 98 12/17/16 14:26 96.3 70 20 177/79 97 12/17/16 12:40 72 17 172/72 98 Room Air 12/17/16 10:17 74 20 184/70 97 Room Air Micro and Labs Laboratory Tests Test 12/17/16 12/18/16 10:05 07:46 Urine Color YELLOW Urine Turbidity CLEAR Urine pH 6.5 Urine Specific [place] 1.018 Urine Protein TRACE Urine Glucose (UA) NEG Urine Ketones NEG Urine Occult Blood NEG Urine Nitrite NEG Urine Bilirubin NEG Urine Urobilinogen LESS THAN 2.0 Urine Leukocyte Esterase TRACE Urine RBC 1 Urine WBC 3 Urine Bacteria RARE Urine Hyaline Casts 1 Microscopic Urinalysis Comment CULT NOT INDICATED Triglycerides Level 68 Cholesterol Level 148 LDL Cholesterol 79 HDL Cholesterol 55.1 Cholesterol/HDL Ratio 2.68 Adama Shah MD Dec 18, 2016 09:28
[2016-12-18] MEDS ORDERED: RESP: ALBUTEROL 2.5 MG/IPRATROPIUM 0.5 MG NEB (PRN) NEB (11:00)
[2016-12-18] MEDS ORDERED: ACETAMINOPHEN 650 MG SUPP RECTAL PRN (11:30)
[2016-12-18] MEDS ORDERED: BISACODYL 10 MG SUPP RECTAL PRN (11:30)
[2016-12-18] MEDS ORDERED: FUROSEMIDE 20 MG/2 ML VIAL IV PRN (11:30)
[2016-12-18] MEDS: LORazepam 2 MG/ML VIAL IV SCH ×2 (12:14→16:53)
--- NOTE | 2016-12-18 16:50 | EKG ---
Date Performed: 12/18/2016 Time Performed: 08:42:17 PTAGE: 86 years EKG: ELECTRONIC VENTRICULAR PACEMAKER ABNORMAL RHYTHM ECG PREVIOUS TRACING : 12/17/2016 08.47 Compared to prior tracing no significant change DOCTOR: Chele Melchor Interpretating Date/Time 12/18/2016 16:49:30
--- NOTE | 2016-12-31 11:03 | HHI.DS ---
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 History obtained from patient's since patient has aphasia. Per yesterday patient did have an episode where he was not able to get up but that resolved quickly. Before going to bed last night she stated that he was perspiring a little more and stated that he felt funny but she that was okay so they went to bed. This morning at 7:30 AM his found him sitting on the toilet slumped onto the wall. She stated that she called EMS and during that time he was responsive but when he left he was nonresponsive. In the emergency department patient does follow commands but has aphasia. He has no strength on his right side. Imaging Last Impressions Head CT 12/17/16830 Signed Impressions: Service Date/Time: December 08:38 - CONCLUSION: No acute findings. Moderate central and cortical atrophy. Encephalomalacia right posterior temporal parietal region. Howie Freire MD Chest X-Ray 12/17/16830 Signed Impressions: Service Date/Time: December 08:44 - CONCLUSION: No acute disease. Howie Antonio Jr., MD Carotid Artery Ultrasound 12/17/16 0000 Signed Impressions: Service Date/Time: December 17:02 - CONCLUSION: Mild flow velocity acceleration across the right carotid bifurcation indicating at least moderate stenotic narrowing estimated at potentially 50%% or greater Horace Allen MD Pt update on day of discharge Patient condition deteriorated. He went into respiratory failure. Hospital Course 86-year-old male admitted with acute CVA. The patient has a medical history significant for Von Willebrand's disease, history of intracranial hemorrhage secondary to Coumadin, and hypertension. On presentation the patient had dysphagia and right-sided weakness. Antiplatelet or anticoagulation were contraindicated. Patient was followed by neurology. His prognosis was poor on arrival. The next day the patient went into respiratory failure. His family decided to transition him to comfort care. Hospice was consulted. The patient in the hospital later that day. Pt Condition on Discharge: Deteriorating Discharge Disposition: Hospice/Med Facility Discharge Time: > 30 minutes Jaquelin Arriola MD Dec 31, 2016 11:03
== END 2016-12-18 18:20 | disposition expired | DRG 64 ==
LOC: NEPC 08:28 → NEDA 11:34 → N05B 13:06
PROVIDERS: ADMIT Family Medicine Hospice and Palliative Medicine; ATTEND Family Medicine Hospice and Palliative Medicine
DX: I63.9 Cerebral infarction, unspecified (principal); J96.00 Acute respiratory failure, unspecified whether with hypoxia or hypercapnia; D68.0 Von Willebrand disease; G81.91 Hemiplegia, unspecified affecting right dominant side; I48.91 Unspecified atrial fibrillation; R13.10 Dysphagia, unspecified; R47.01 Aphasia; I10 Essential (primary) hypertension; Z95.0 Presence of cardiac pacemaker; Z95.2 Presence of prosthetic heart valve; Z86.73 Personal history of transient ischemic attack (TIA), and cerebral infarction without residual deficits; Z66 Do not resuscitate; Z51.5 Encounter for palliative care; S40.022A Contusion of left upper arm, initial encounter; S40.021A Contusion of right upper arm, initial encounter; X58.XXXA Exposure to other specified factors, initial encounter; Z85.828 Personal history of other malignant neoplasm of skin; Z87.891 Personal history of nicotine dependence
CPT/HCPCS: 70450; 71010; 80053; 80061; 81001; 82948; 83036; 84484; 85007; 85027; 85610; 85730; 93005; 93306; 93880; 94664; J1815; J2060; J2270